=== PATIENT | male | born 1930 | race Caucasian/White ===

== ENCOUNTER 2016-11-02 17:01 | Inpatient (IN) | payer OTHER ==
[~2016-11-02] VITALS: Ht 172.7 cm; Wt 74.3 kg
[~2016-11-02 17:01] MED LIST: ACID CONTROL20 MG PO; BUSPAR10 MG PO; COUMADIN2.5 MG PO; DIGOXIN125 MCG PO; DOCUSATE CALCI240 MG PO; DOXYCYCLINE HY100 MG PO; FLOMAX0.4 MG PO; HEMOCYTE324 MG PO; IMODIUM MS REL1 EACH PO; K-TAB10 MEQ PO; KEFLEX500 MG PO; LOPID600 MG PO; MIRALAX17 GM PO; PROSCAR5 MG PO; SENNA8.6 M1 PO; SPIRIVA1 INHALATI IH; VESICARE5 MG PO
[2016-11-02 17:51] LABS: HEMATOCRIT 36.4 % (38.0-50.0); MCH 30.7 PG (29.0-34.0); MCHC 33.5 G/DL (30.0-36.0); MCV 91.7 FL (86-99); MEAN PLAT.VOLUME 11.6 uM^3 (9.0-12.4); PLATELET COUNT 144 K/uL (156-360); RBC DIS.WIDTH-CV 13.9 % (11.8-14.6); RBC DIS.WIDTH-SD 45.7 % (39-53); RED BLOOD COUNT 3.97 M/uL (4.00-5.50)
[2016-11-02 18:16] LABS: TROP-I INTERPRETATION POSITIVE
[2016-11-02 18:17] LABS: TROPONIN-I 1.23 ng/mL (0.0-0.30)
[2016-11-02 18:22] LABS: CHLORIDE 110 mEq/L (99-109); POTASSIUM 4.3 mEq/L (3.7-5.4); SODIUM 143 mEq/L (136-147)
[2016-11-02 18:25] LABS: GLUCOSE 106 mg/dL (70-99)
[2016-11-02 18:26] LABS: ANION GAP 10 MEQ/L (2-14)
[2016-11-02 18:28] LABS: GFR ESTIMATE (CALCULATED) > 59 mL/min/
[2016-11-02 18:29] LABS: UREA NITROGEN (BUN) 18 mg/dL (9-23)
[2016-11-02 18:36] LABS: INTER. NORMALIZED RATIO 2.5; PROTHROMBIN TIME 25.8 (9.2-11.2); PTT 40.6 (25-32)
[2016-11-02] MEDS ORDERED: COUMADIN2 MG PO (19:20)
[2016-11-02] MEDS ORDERED: FAMOTIDINE20 MG PO (19:25)
[2016-11-02] MEDS ORDERED: AMLODIPINE BESYL5 MG PO (19:26)
[2016-11-02 23:42] LABS: TROP-I INTERPRETATION POSITIVE
[2016-11-02 23:48] LABS: TROPONIN-I 1.52 ng/mL (0.0-0.30)
[2016-11-02 23:56] VITALS: BP 132/88
[2016-11-03 03:23] VITALS: BP 130/81
[2016-11-03 07:55] VITALS: BP 112/70
[2016-11-03 08:22] LABS: HEMATOCRIT 35.5 % (38.0-50.0); MCH 31.8 PG (29.0-34.0); MCHC 34.4 G/DL (30.0-36.0); MCV 92.4 FL (86-99); MEAN PLAT.VOLUME 12.2 uM^3 (9.0-12.4); PLATELET COUNT 132 K/uL (156-360); RBC DIS.WIDTH-CV 14.2 % (11.8-14.6); RED BLOOD COUNT 3.84 M/uL (4.00-5.50); WHITE BLOOD COUNT 5.6 K/uL (4.1-10.2)
[2016-11-03 08:47] LABS: ANION GAP 9 MEQ/L (2-14); CHLORIDE 106 MEQ/L (99-109); GFR ESTIMATE (CALCULATED) > 59 mL/min/; GLUCOSE 105 mg/dL (70-99); POTASSIUM 3.5 MEQ/L (3.7-5.4); SAMPLE HEMOLYSIS CHECK 0; SAMPLE ICTERIC CHECK 0; SAMPLE LIPEMIA CHECK 0; SODIUM 141 MEQ/L (136-147); UREA NITROGEN (BUN) 17 mg/dL (9-23)
[2016-11-03 08:58] LABS: TROP-I INTERPRETATION POSITIVE
[2016-11-03 09:07] LABS: TROPONIN-I 1.54 ng/mL (0.0-0.30)
[2016-11-03 11:55] VITALS: BP 90/60
[2016-11-03 15:30] VITALS: BP 102/64
[2016-11-03 18:45] VITALS: BP 107/61
[2016-11-03 23:14] VITALS: BP 100/55
[2016-11-04 03:48] VITALS: BP 108/64
[2016-11-04 08:29] VITALS: BP 103/65
[2016-11-04 12:15] VITALS: BP 96/55
[2016-11-04 17:46] LABS: TROP-I INTERPRETATION POSITIVE
[2016-11-04 17:48] LABS: TROPONIN-I 1.07 ng/mL (0.0-0.30)
[2016-11-04 17:50] LABS: ANION GAP 7 MEQ/L (2-14); CHLORIDE 103 MEQ/L (99-109); GFR ESTIMATE (CALCULATED) > 59 mL/min/; GLUCOSE 108 mg/dL (70-99); POTASSIUM 4.3 MEQ/L (3.7-5.4); SAMPLE HEMOLYSIS CHECK 0; SAMPLE ICTERIC CHECK 0; SAMPLE LIPEMIA CHECK 0; SODIUM 137 MEQ/L (136-147); UREA NITROGEN (BUN) 30 mg/dL (9-23)
[2016-11-04 19:45] VITALS: BP 114/63
[2016-11-04 22:36] VITALS: BP 108/58
[2016-11-05 03:00] VITALS: BP 96/54
[2016-11-05 06:17] LABS: MEAN PLAT.VOLUME 12.9 uM^3 (9.0-12.4); PLATELET COUNT 164 K/uL (156-360)
[2016-11-05 06:57] LABS: ABS NEUTROPHIL COUNT 4.34; EOSINOPHIL ABS CT 0.14; MCH 31.9 PG (29.0-34.0); MCHC 34.2 G/DL (30.0-36.0); MCV 93.3 FL (86-99); PLAT.SUFFICIENCY ADEQUATE; RBC DIS.WIDTH-CV 14.1 % (11.8-14.6); RBC DIS.WIDTH-SD 47.7 % (39-53); RED BLOOD COUNT 3.86 M/uL (4.00-5.50); USER ID BLP; WHITE BLOOD COUNT 6.8 K/uL (4.1-10.2)
[2016-11-05 08:00] VITALS: BP 101/59
[2016-11-05 11:04] LABS: ANION GAP 12 MEQ/L (2-14); CHLORIDE 101 MEQ/L (99-109); GFR ESTIMATE (CALCULATED) 47 mL/min/; GLUCOSE 102 mg/dL (70-99); POTASSIUM 4.3 MEQ/L (3.7-5.4); SAMPLE HEMOLYSIS CHECK 0; SAMPLE ICTERIC CHECK 0; SAMPLE LIPEMIA CHECK 0; SODIUM 140 MEQ/L (136-147); UREA NITROGEN (BUN) 33 mg/dL (9-23)
[2016-11-05 13:58] LABS: DELETE MACHINE DIFF? YES
[2016-11-05 16:40] VITALS: BP 101/64
[2016-11-05 19:03] VITALS: BP 108/61
[2016-11-05 23:19] VITALS: BP 104/57
[2016-11-06 04:48] VITALS: BP 101/62
[2016-11-06 07:54] VITALS: BP 102/56
[2016-11-06 07:54] LABS: ANION GAP 14 MEQ/L (2-14); CHLORIDE 100 MEQ/L (99-109); GFR ESTIMATE (CALCULATED) 51 mL/min/; GLUCOSE 117 mg/dL (70-99); SAMPLE HEMOLYSIS CHECK 0; SAMPLE ICTERIC CHECK 0; SAMPLE LIPEMIA CHECK 0; SODIUM 143 MEQ/L (136-147); UREA NITROGEN (BUN) 35 mg/dL (9-23)
[2016-11-06 11:13] VITALS: BP 103/60
[2016-11-06 16:50] VITALS: BP 100/60
[2016-11-06 19:10] VITALS: BP 103/55
[2016-11-06 23:28] VITALS: BP 91/52
[2016-11-07 04:42] VITALS: BP 99/57
[2016-11-07 06:37] LABS: EOSINOPHIL (%) 2.4 % (0-5); EOSINOPHIL COUNT 0.1 K/uL (0-0.3); HEMATOCRIT 36.5 % (38.0-50.0); IMMATURE GRANULOCYTE (%) 0.2 % (0.0-0.7); LYMPHOCYTE COUNT 1.8 K/uL (1.0-2.8); MCH 29.6 PG (29.0-34.0); MCHC 31.8 G/DL (30.0-36.0); MCV 93.1 FL (86-99); MEAN PLAT.VOLUME 12.3 uM^3 (9.0-12.4); MONOCYTE (%) 10.4 % (3-12); MONOCYTE COUNT 0.6 K/uL (0-0.8); PLATELET COUNT 142 K/uL (156-360); RBC DIS.WIDTH-CV 14.1 % (11.8-14.6); RBC DIS.WIDTH-SD 47.7 % (39-53); RED BLOOD COUNT 3.92 M/uL (4.00-5.50); WHITE BLOOD COUNT 5.5 K/uL (4.1-10.2)
[2016-11-07 07:01] LABS: ANION GAP 8 MEQ/L (2-14); CHLORIDE 100 MEQ/L (99-109); GFR ESTIMATE (CALCULATED) 51 mL/min/; GLUCOSE 105 mg/dL (70-99); POTASSIUM 3.5 MEQ/L (3.7-5.4); SAMPLE HEMOLYSIS CHECK 0; SAMPLE ICTERIC CHECK 0; SAMPLE LIPEMIA CHECK 0; SODIUM 140 MEQ/L (136-147); UREA NITROGEN (BUN) 33 mg/dL (9-23)
[2016-11-07 08:00] VITALS: BP 102/57
[2016-11-07 12:00] VITALS: BP 100/60
[2016-11-07 16:15] VITALS: BP 94/52
[2016-11-07 19:00] VITALS: BP 110/60
[2016-11-07 23:54] VITALS: BP 106/59
[2016-11-08 04:22] VITALS: BP 97/55
[2016-11-08 07:14] VITALS: BP 104/55
[2016-11-08 07:36] LABS: ANION GAP 11 MEQ/L (2-14); CHLORIDE 102 MEQ/L (99-109); GFR ESTIMATE (CALCULATED) 51 mL/min/; GLUCOSE 113 mg/dL (70-99); SAMPLE HEMOLYSIS CHECK 0; SAMPLE ICTERIC CHECK 0; SAMPLE LIPEMIA CHECK 0; SODIUM 142 MEQ/L (136-147); UREA NITROGEN (BUN) 32 mg/dL (9-23)
[2016-11-08 07:37] LABS: POTASSIUM 4.5 MEQ/L (3.7-5.4)
[2016-11-08 12:55] VITALS: BP 97/55
[2016-11-08 16:45] VITALS: BP 91/53
[2016-11-08 19:33] VITALS: BP 108/62
[2016-11-09] VITALS (7 sets, daily range): BP systolic 92–111; BP diastolic 52–57
[2016-11-09 06:34] LABS: EOSINOPHIL (%) 1.6 % (0-5); EOSINOPHIL COUNT 0.1 K/uL (0-0.3); HEMATOCRIT 35.8 % (38.0-50.0); IMMATURE GRANULOCYTE (%) 0.2 % (0.0-0.7); LYMPHOCYTE COUNT 1.6 K/uL (1.0-2.8); MCHC 31.8 G/DL (30.0-36.0); MCV 94.2 FL (86-99); MEAN PLAT.VOLUME 12.2 uM^3 (9.0-12.4); MONOCYTE (%) 10.2 % (3-12); MONOCYTE COUNT 0.6 K/uL (0-0.8); NEUTROPHIL (%) 62.2 % (45-76); NEUTROPHIL COUNT 3.9 K/uL (1.8-6.4); PLATELET COUNT 135 K/uL (156-360); WHITE BLOOD COUNT 6.3 K/uL (4.1-10.2)
[2016-11-09 09:10] LABS: ALKALINE PHOSPHATASE 46 IU/L (3-129); ANION GAP 10 MEQ/L (2-14); CHLORIDE 103 MEQ/L (99-109); GFR ESTIMATE (CALCULATED) > 59 mL/min/; GLUCOSE 108 mg/dL (70-99); POTASSIUM 4.1 MEQ/L (3.7-5.4); SAMPLE HEMOLYSIS CHECK 0; SAMPLE ICTERIC CHECK 0; SAMPLE LIPEMIA CHECK 0; SODIUM 142 MEQ/L (136-147); TOTAL BILIRUBIN 0.8 MG/DL (0.0-1.0); UREA NITROGEN (BUN) 33 mg/dL (9-23)
[2016-11-10 03:00] VITALS: BP 109/59
[2016-11-10 10:15] VITALS: BP 118/55
[2016-11-10 13:15] VITALS: BP 103/62
[2016-11-10] MEDS ORDERED: ASPIR-LOW81 MG PO (13:15)
[2016-11-10] MEDS ORDERED: FUROSEMIDE40 MG PO (13:15)
[2016-11-10] MEDS ORDERED: NITROSTAT0.4 MG SL (13:15)
[2016-11-10] MEDS ORDERED: LOPRESSOR50 MG PO (13:15)
[2016-11-10] MEDS ORDERED: LISINOPRIL2.5 MG PO (13:15)
[2016-11-10] MEDS ORDERED: ELIQUIS2.5 MG PO (13:15)
[2016-11-10] MEDS ORDERED: PRAVASTATIN SOD80 MG PO (13:15)
[2016-11-10] MEDS ORDERED: DOCUSATE SODIU100 MG PO (13:15)
== END 2016-11-10 16:24 | DRG 280 ==
LOC: EME 17:01 → EDOF 22:42 → 4EAST 22:42
PROVIDERS: Family Medicine; Hospitalist; Internal Medicine Cardiovascular Disease; Nurse Practitioner Adult Health; Physician Assistant; Physician Assistant Medical
DX: I21.4 Non-ST elevation (NSTEMI) myocardial infarction (principal); I50.33 Acute on chronic diastolic (congestive) heart failure; N17.9 Acute kidney failure, unspecified; I11.0 Hypertensive heart disease with heart failure; I48.0 Paroxysmal atrial fibrillation; E78.5 Hyperlipidemia, unspecified; J44.1 Chronic obstructive pulmonary disease with (acute) exacerbation; E87.6 Hypokalemia; J92.0 Pleural plaque with presence of asbestos; T57.8X1D Toxic effect of other specified inorganic substances, accidental (unintentional), subsequent encounter; N40.0 Benign prostatic hyperplasia without lower urinary tract symptoms; Z87.891 Personal history of nicotine dependence; I27.2 Other secondary pulmonary hypertension; Z79.01 Long term (current) use of anticoagulants; I44.0 Atrioventricular block, first degree; H91.90 Unspecified hearing loss, unspecified ear
CPT/HCPCS: 71020; 78452; 80048; 80053; 80162; 83880; 84484; 85025; 85027; 85610; 85730; 93005; 93017; 93306; 94640; 94640 76; 94760; 94799; 97530 GP; 99202; 99281; 99285; A9500; J1940; J2785

== ENCOUNTER 2017-01-08 14:49 | Inpatient (IN) | payer OTHER ==
[~2017-01-08] VITALS: Ht 172.7 cm; Wt 64.3 kg
[~2017-01-08 14:49] MED LIST changes: +AMLODIPINE BESYL5 MG PO; +ASPIR-LOW81 MG PO; +COUMADIN2 MG PO; +DOCUSATE SODIU100 MG PO; +ELIQUIS2.5 MG PO; +FAMOTIDINE20 MG PO; +FUROSEMIDE40 MG PO; +LISINOPRIL2.5 MG PO; +LOPRESSOR50 MG PO; +NITROSTAT0.4 MG SL; +PRAVASTATIN SOD80 MG PO
[2017-01-08 15:43] LABS: EOSINOPHIL (%) 0.1 % (0-5); HEMATOCRIT 39.4 % (38.0-50.0); IMMATURE GRANULOCYTE (%) 0.3 % (0.0-0.7); INSTRUMENT ABS NEUTROPHIL CT 5.3 K/uL; LYMPHOCYTE COUNT 1.6 K/uL (1.0-2.8); MCH 30.5 PG (29.0-34.0); MCHC 34.3 G/DL (30.0-36.0); MCV 88.9 FL (86-99); MEAN PLAT.VOLUME 11.9 uM^3 (9.0-12.4); MONOCYTE (%) 8.7 % (3-12); MONOCYTE COUNT 0.7 K/uL (0-0.8); NEUTROPHIL (%) 69.9 % (45-76); NEUTROPHIL COUNT 5.3 K/uL (1.8-6.4); PLATELET COUNT 162 K/uL (156-360); RBC DIS.WIDTH-CV 12.1 % (11.8-14.6); RBC DIS.WIDTH-SD 39.7 % (39-53); RED BLOOD COUNT 4.43 M/uL (4.00-5.50); WHITE BLOOD COUNT 7.6 K/uL (4.1-10.2)
[2017-01-08 15:52] LABS: CHLORIDE 89 mEq/L (99-109); POTASSIUM 2.9 mEq/L (3.7-5.4); SODIUM 134 mEq/L (136-147)
[2017-01-08 15:54] LABS: GLUCOSE 115 mg/dL (70-99)
[2017-01-08 15:55] LABS: ANION GAP 15 MEQ/L (2-14)
[2017-01-08 15:57] LABS: ALKALINE PHOSPHATASE 39 IU/L (3-129)
[2017-01-08 15:58] LABS: GFR ESTIMATE (CALCULATED) 18 mL/min/
[2017-01-08 16:02] LABS: UREA NITROGEN (BUN) 87 mg/dL (9-23)
[2017-01-08 16:04] LABS: TROP-I INTERPRETATION NEGATIVE; TROPONIN-I 0.07 ng/mL (0.0-0.30)
[2017-01-08] MEDS ORDERED: IRON325 M1 PO (17:52)
[2017-01-08] MEDS ORDERED: LISINOPRIL2.5 MG PO (17:53)
[2017-01-08] MEDS ORDERED: FUROSEMIDE40 MG PO (17:54)
[2017-01-08] MEDS ORDERED: LO-DOSE ASPIRIN81 M2 PO (17:54)
[2017-01-08] MEDS ORDERED: MIRALAX255 GM PO (17:55)
[2017-01-08] MEDS ORDERED: TRICOR48 MG PO (17:56)
[2017-01-08] MEDS ORDERED: METOLAZONE5 MG PO (17:56)
[2017-01-08] MEDS ORDERED: POTASSIUM CHLO20 ME2 PO (17:57)
[2017-01-08 21:06] LABS: ADD MIUA? NO; BILIRUBIN NEGATIVE; BLOOD NEGATIVE; COLOR YELLOW ((YELLOW)); GLUCOSE (STRIP) NEGATIVE; KETONES NEGATIVE; LEUKOCYTES NEGATIVE; NITRITE NEGATIVE; PROTEIN (STRIP) NEGATIVE; SPECIFIC GRAVITY 1.009 (1.000-1.030); UCUL ADDED? NO; UROBILINOGEN 0.2 MG/DL (0.2-1.0)
[2017-01-08 21:27] LABS: DIGOXIN < 0.3 ng/mL (0.8-2.0)
[2017-01-08 22:06] LABS: MAGNESIUM 2.5 mg/dL (1.3-2.7)
[2017-01-08 23:28] VITALS: BP 121/55
[2017-01-09 04:15] VITALS: BP 112/63
[2017-01-09 07:13] LABS: ALKALINE PHOSPHATASE 36 IU/L (3-129); ANION GAP 11 MEQ/L (2-14); CHLORIDE 94 MEQ/L (99-109); GFR ESTIMATE (CALCULATED) 24 mL/min/; GLUCOSE 99 mg/dL (70-99); POTASSIUM 2.9 MEQ/L (3.7-5.4); SAMPLE HEMOLYSIS CHECK 0; SAMPLE ICTERIC CHECK 0; SAMPLE LIPEMIA CHECK 0; SODIUM 137 MEQ/L (136-147); TOTAL BILIRUBIN 0.7 MG/DL (0.0-1.0); UREA NITROGEN (BUN) 76 mg/dL (9-23)
[2017-01-09 09:52] VITALS: BP 106/68
[2017-01-09 16:23] VITALS: BP 100/58
[2017-01-09 22:57] VITALS: BP 131/60
[2017-01-10 06:38] LABS: EOSINOPHIL (%) 2.6 % (0-5); EOSINOPHIL COUNT 0.2 K/uL (0-0.3); HEMATOCRIT 35.6 % (38.0-50.0); IMMATURE GRANULOCYTE (%) 0.3 % (0.0-0.7); INSTRUMENT ABS NEUTROPHIL CT 4.3 K/uL; LYMPHOCYTE COUNT 1.7 K/uL (1.0-2.8); MCH 29.9 PG (29.0-34.0); MCHC 32.3 G/DL (30.0-36.0); MCV 92.7 FL (86-99); MEAN PLAT.VOLUME 12.1 uM^3 (9.0-12.4); MONOCYTE (%) 8.7 % (3-12); MONOCYTE COUNT 0.6 K/uL (0-0.8); NEUTROPHIL COUNT 4.3 K/uL (1.8-6.4); PLATELET COUNT 123 K/uL (156-360); RBC DIS.WIDTH-CV 12.3 % (11.8-14.6); RBC DIS.WIDTH-SD 42.1 % (39-53); RED BLOOD COUNT 3.84 M/uL (4.00-5.50); WHITE BLOOD COUNT 6.9 K/uL (4.1-10.2)
[2017-01-10 06:41] LABS: ANION GAP 7 MEQ/L (2-14); CHLORIDE 102 MEQ/L (99-109); GFR ESTIMATE (CALCULATED) 47 mL/min/; GLUCOSE 116 mg/dL (70-99); POTASSIUM 3.4 MEQ/L (3.7-5.4); SAMPLE HEMOLYSIS CHECK 0; SAMPLE ICTERIC CHECK 0; SAMPLE LIPEMIA CHECK 0; SODIUM 139 MEQ/L (136-147); UREA NITROGEN (BUN) 48 mg/dL (9-23)
[2017-01-10 06:59] VITALS: BP 104/57
[2017-01-10 19:37] VITALS: BP 132/68
[2017-01-10 23:32] VITALS: BP 123/68
[2017-01-11 03:52] VITALS: BP 134/76
[2017-01-11 07:04] LABS: EOSINOPHIL (%) 3.7 % (0-5); EOSINOPHIL COUNT 0.2 K/uL (0-0.3); HEMATOCRIT 34.5 % (38.0-50.0); IMMATURE GRANULOCYTE (%) 0.5 % (0.0-0.7); INSTRUMENT ABS NEUTROPHIL CT 3.7 K/uL; LYMPHOCYTE COUNT 1.4 K/uL (1.0-2.8); MCH 29.7 PG (29.0-34.0); MCHC 31.6 G/DL (30.0-36.0); MEAN PLAT.VOLUME 12.5 uM^3 (9.0-12.4); MONOCYTE (%) 8.7 % (3-12); MONOCYTE COUNT 0.5 K/uL (0-0.8); NEUTROPHIL (%) 62.5 % (45-76); NEUTROPHIL COUNT 3.7 K/uL (1.8-6.4); PLATELET COUNT 115 K/uL (156-360); RBC DIS.WIDTH-CV 12.3 % (11.8-14.6); RBC DIS.WIDTH-SD 42.8 % (39-53); RED BLOOD COUNT 3.67 M/uL (4.00-5.50)
[2017-01-11 07:20] LABS: ALKALINE PHOSPHATASE 28 IU/L (3-129); ANION GAP 7 MEQ/L (2-14); CHLORIDE 103 MEQ/L (99-109); GFR ESTIMATE (CALCULATED) > 59 mL/min/; GLUCOSE 105 mg/dL (70-99); POTASSIUM 3.7 MEQ/L (3.7-5.4); SAMPLE HEMOLYSIS CHECK 0; SAMPLE ICTERIC CHECK 0; SAMPLE LIPEMIA CHECK 0; SODIUM 139 MEQ/L (136-147); UREA NITROGEN (BUN) 31 mg/dL (9-23)
[2017-01-11 07:22] LABS: TOTAL BILIRUBIN 0.5 MG/DL (0.0-1.0)
[2017-01-11 07:30] VITALS: BP 118/58
[2017-01-11 11:00] VITALS: BP 121/66
== END 2017-01-11 15:59 | DRG 682 ==
LOC: EME 14:49 → EDOF 20:36 → 5EAST 20:36
PROVIDERS: Emergency Medicine; Nurse Practitioner Adult Health; Physician Assistant Medical
DX: N17.9 Acute kidney failure, unspecified (principal); I25.10 Atherosclerotic heart disease of native coronary artery without angina pectoris; I48.0 Paroxysmal atrial fibrillation; E78.5 Hyperlipidemia, unspecified; I12.9 Hypertensive chronic kidney disease with stage 1 through stage 4 chronic kidney disease, or unspecified chronic kidney disease; N18.3 Chronic kidney disease, stage 3 (moderate); K50.90 Crohn's disease, unspecified, without complications; M19.90 Unspecified osteoarthritis, unspecified site; E87.5 Hyperkalemia; I50.31 Acute diastolic (congestive) heart failure; J44.9 Chronic obstructive pulmonary disease, unspecified; J84.10 Pulmonary fibrosis, unspecified; I27.2 Other secondary pulmonary hypertension; I95.9 Hypotension, unspecified; K21.9 Gastro-esophageal reflux disease without esophagitis; N40.0 Benign prostatic hyperplasia without lower urinary tract symptoms; K59.00 Constipation, unspecified; R63.4 Abnormal weight loss; F32.9 Major depressive disorder, single episode, unspecified; R07.9 Chest pain, unspecified; J32.9 Chronic sinusitis, unspecified; E46 Unspecified protein-calorie malnutrition; H91.90 Unspecified hearing loss, unspecified ear; Z86.73 Personal history of transient ischemic attack (TIA), and cerebral infarction without residual deficits; Z68.22 Body mass index [BMI] 22.0-22.9, adult; Z79.01 Long term (current) use of anticoagulants; I25.2 Old myocardial infarction; Z90.49 Acquired absence of other specified parts of digestive tract; E87.1 Hypo-osmolality and hyponatremia
CPT/HCPCS: 71020; 72100; 74230; 76770; 80048; 80053; 80162; 81003; 82436; 82575; 83735; 83880; 83935; 84100; 84133; 84300; 84484; 85025; 92610 GN; 92611 GN; 93005; 94640; 94640 76; 94760; 94799; 97530 GP; 99202; 99281; 99285; J3475; J3480; J7030

== ENCOUNTER 2017-04-14 12:27 | Inpatient (IN) | payer OTHER ==
[~2017-04-14] VITALS: Ht 172.7 cm; Wt 68.8 kg
[~2017-04-14 12:27] MED LIST changes: +FUROSEMIDE20 MG PO; +IRON325 M1 PO; +LO-DOSE ASPIRIN81 M2 PO; +METOLAZONE5 MG PO; +MIRALAX255 GM PO; +POTASSIUM CHLO20 ME2 PO; +TRICOR48 MG PO
[2017-04-14 19:28] LABS: BILIRUBIN NEGATIVE; BLOOD NEGATIVE; COLOR AMBER ((YELLOW)); GLUCOSE (STRIP) NEGATIVE; KETONES NEGATIVE; LEUKOCYTES NEGATIVE; NITRITE NEGATIVE; PROTEIN (STRIP) NEGATIVE; SPECIFIC GRAVITY 1.012 (1.000-1.030); UROBILINOGEN 0.2 MG/DL (0.2-1.0)
[2017-04-14 19:30] LABS: ADD MIUA? NO; UCUL ADDED? NO
[2017-04-14 19:51] LABS: EOSINOPHIL (%) 0.3 % (0-5); HEMATOCRIT 34.7 % (38.0-50.0); IMMATURE GRANULOCYTE (%) 0.4 % (0.0-0.7); INSTRUMENT ABS NEUTROPHIL CT 7.7 K/uL; LYMPHOCYTE COUNT 1.4 K/uL (1.0-2.8); MCH 31.2 PG (29.0-34.0); MCV 91.8 FL (86-99); MEAN PLAT.VOLUME 10.2 uM^3 (9.0-12.4); MONOCYTE (%) 8.2 % (3-12); MONOCYTE COUNT 0.8 K/uL (0-0.8); NEUTROPHIL (%) 76.6 % (45-76); NEUTROPHIL COUNT 7.7 K/uL (1.8-6.4); PLATELET COUNT 185 K/uL (156-360); RBC DIS.WIDTH-CV 13.2 % (11.8-14.6); RBC DIS.WIDTH-SD 44.6 % (39-53); RED BLOOD COUNT 3.78 M/uL (4.00-5.50)
[2017-04-14 20:01] LABS: CHLORIDE 90 mEq/L (99-109); POTASSIUM 2.6 mEq/L (3.7-5.4); SODIUM 139 mEq/L (136-147)
[2017-04-14 20:02] LABS: GLUCOSE 129 mg/dL (70-99)
[2017-04-14 20:04] LABS: ANION GAP 13 MEQ/L (2-14)
[2017-04-14 20:06] LABS: GFR ESTIMATE (CALCULATED) > 59 mL/min/
[2017-04-14] MEDS ORDERED: PHILLIPS'400 MG/5 M PO (20:06)
[2017-04-14] MEDS ORDERED: B COMPLEX #11 EACH PO (20:06)
[2017-04-14 20:07] LABS: UREA NITROGEN (BUN) 15 mg/dL (9-23)
[2017-04-14 20:45] LABS: TROP-I INTERPRETATION POSITIVE
[2017-04-14 21:20] VITALS: BP 132/63
[2017-04-15] VITALS (7 sets, daily range): BP systolic 89–139; BP diastolic 52–74
[2017-04-15 01:14] LABS: INTER. NORMALIZED RATIO 1.3; PROTHROMBIN TIME 14.2 SEC (10.2-12.9)
[2017-04-15 01:16] LABS: PTT 29.2 SEC (25-37)
[2017-04-15 04:35] LABS: TROP-I INTERPRETATION POSITIVE
[2017-04-15 04:45] LABS: TROPONIN-I 4.12 ng/mL (0.0-0.30)
[2017-04-15 05:28] LABS: HEMATOCRIT 35.9 % (38.0-50.0); MCH 31.3 PG (29.0-34.0); MCHC 33.7 G/DL (30.0-36.0); MCV 92.8 FL (86-99); MEAN PLAT.VOLUME 10.7 uM^3 (9.0-12.4); PLATELET COUNT 177 K/uL (156-360); RBC DIS.WIDTH-CV 13.3 % (11.8-14.6); RBC DIS.WIDTH-SD 45.7 % (39-53); RED BLOOD COUNT 3.87 M/uL (4.00-5.50); WHITE BLOOD COUNT 8.4 K/uL (4.1-10.2)
[2017-04-15 05:50] LABS: ANION GAP 8 MEQ/L (2-14); CHLORIDE 93 MEQ/L (99-109); GFR ESTIMATE (CALCULATED) > 59 mL/min/; GLUCOSE 101 mg/dL (70-99); SAMPLE HEMOLYSIS CHECK 0; SAMPLE ICTERIC CHECK 0; SAMPLE LIPEMIA CHECK 0; SODIUM 138 MEQ/L (136-147); UREA NITROGEN (BUN) 14 mg/dL (9-23)
[2017-04-15 06:14] LABS: METH RESISTANT S AUREUS PCR NEGATIVE (NEGATIVE)
[2017-04-15 06:18] LABS: PROBE CHECK PASS; SPECIMEN PROCESSING CONTROL PASS
[2017-04-15 09:17] LABS: TROP-I INTERPRETATION POSITIVE; TROPONIN-I 3.34 ng/mL (0.0-0.30)
[2017-04-15 15:27] LABS: INTER. NORMALIZED RATIO 1.3; PROTHROMBIN TIME 14.2 SEC (10.2-12.9)
[2017-04-15 15:37] LABS: PTT 47.2 SEC (25-37)
[2017-04-15 22:17] LABS: INTER. NORMALIZED RATIO 1.2; PROTHROMBIN TIME 13.3 SEC (10.2-12.9)
[2017-04-15 22:19] LABS: PTT 62.6 SEC (25-37)
[2017-04-16 04:18] VITALS: BP 97/53
[2017-04-16 08:23] VITALS: BP 96/53
[2017-04-16 12:19] VITALS: BP 118/59
[2017-04-16 16:21] VITALS: BP 132/64
[2017-04-16 20:00] VITALS: BP 115/57
[2017-04-16 23:55] VITALS: BP 119/52
[2017-04-17 04:00] VITALS: BP 119/82
[2017-04-17 05:48] LABS: HEMATOCRIT 31.3 % (38.0-50.0); MCH 31.4 PG (29.0-34.0); MCHC 34.2 G/DL (30.0-36.0); MCV 91.8 FL (86-99); MEAN PLAT.VOLUME 10.1 uM^3 (9.0-12.4); PLATELET COUNT 166 K/uL (156-360); RBC DIS.WIDTH-CV 13.3 % (11.8-14.6); RBC DIS.WIDTH-SD 45.1 % (39-53); RED BLOOD COUNT 3.41 M/uL (4.00-5.50); WHITE BLOOD COUNT 7.5 K/uL (4.1-10.2)
[2017-04-17 06:10] LABS: ANION GAP 7 MEQ/L (2-14); CHLORIDE 93 MEQ/L (99-109); GFR ESTIMATE (CALCULATED) > 59 mL/min/; GLUCOSE 106 mg/dL (70-99); POTASSIUM 2.9 MEQ/L (3.7-5.4); SAMPLE HEMOLYSIS CHECK 0; SAMPLE ICTERIC CHECK 0; SAMPLE LIPEMIA CHECK 0; SODIUM 137 MEQ/L (136-147); UREA NITROGEN (BUN) 20 mg/dL (9-23)
[2017-04-17 07:26] VITALS: BP 119/59
[2017-04-17 11:28] VITALS: BP 121/84
[2017-04-17] MEDS ORDERED: HYDROCODON-ACE1 EAC7 PO (14:53)
[2017-04-17] MEDS ORDERED: TRAMADOL HCL50 MG PO (14:54)
[2017-04-17] MEDS ORDERED: GABAPENTIN100 MG PO (14:54)
[2017-04-17] MEDS ORDERED: LIDOCAINE1 EACH TD (14:54)
[2017-04-17 15:44] VITALS: BP 109/55
== END 2017-04-17 17:47 | disposition home or self-care (01) | DRG 281 ==
LOC: EME 12:27 → EDOF 20:12 → ENRESERV 20:14 → 5WEST 20:44 → 4EAST 21:15 → ENRESERV 21:21 → 4EAST 23:47
PROVIDERS: Emergency Medicine; Hospitalist; Internal Medicine; Nurse Practitioner Adult Health; Physician Assistant
DX: I21.4 Non-ST elevation (NSTEMI) myocardial infarction (principal); M48.06 Spinal stenosis, lumbar region; I48.0 Paroxysmal atrial fibrillation; I50.9 Heart failure, unspecified; I11.0 Hypertensive heart disease with heart failure; I50.42 Chronic combined systolic (congestive) and diastolic (congestive) heart failure; I08.3 Combined rheumatic disorders of mitral, aortic and tricuspid valves; J44.9 Chronic obstructive pulmonary disease, unspecified; K50.90 Crohn's disease, unspecified, without complications; I27.2 Other secondary pulmonary hypertension; I42.9 Cardiomyopathy, unspecified; M51.36 Other intervertebral disc degeneration, lumbar region; M54.5 Low back pain; I25.2 Old myocardial infarction; N40.0 Benign prostatic hyperplasia without lower urinary tract symptoms; K21.9 Gastro-esophageal reflux disease without esophagitis; G89.29 Other chronic pain; I87.2 Venous insufficiency (chronic) (peripheral); H91.90 Unspecified hearing loss, unspecified ear; I25.10 Atherosclerotic heart disease of native coronary artery without angina pectoris; F32.9 Major depressive disorder, single episode, unspecified; E87.6 Hypokalemia; E78.5 Hyperlipidemia, unspecified; Z87.891 Personal history of nicotine dependence; Z86.73 Personal history of transient ischemic attack (TIA), and cerebral infarction without residual deficits; Z79.82 Long term (current) use of aspirin; Z79.01 Long term (current) use of anticoagulants
CPT/HCPCS: 71010; 71275; 72100; 72148; 74174; 80048; 80069; 81003; 83735; 83880; 84132 91; 84484; 85025; 85027; 85610; 85730; 87641; 93005; 94640; 94640 76; 94760; 94799; 99281; 99285; J2270; J3480; J7040

== ENCOUNTER 2017-05-19 10:44 | Emergency (ER) | payer OTHER ==
[~2017-05-19] VITALS: Ht 172.7 cm; Wt 70.2 kg
[~2017-05-19 10:44] MED LIST changes: +B COMPLEX #11 EACH PO; +GABAPENTIN100 MG PO; +HYDROCODON-ACE1 EAC7 PO; +LIDOCAINE1 EACH TD; +PHILLIPS'400 MG/5 M PO; +TRAMADOL HCL50 MG PO
[2017-05-19 14:26] VITALS: BP 129/81
== END 2017-05-19 14:28 ==
LOC: EME 10:44
DX: M48.06 Spinal stenosis, lumbar region (principal); G89.29 Other chronic pain; I10 Essential (primary) hypertension; M54.5 Low back pain; I25.2 Old myocardial infarction; K50.90 Crohn's disease, unspecified, without complications; J44.9 Chronic obstructive pulmonary disease, unspecified; H91.90 Unspecified hearing loss, unspecified ear; N40.0 Benign prostatic hyperplasia without lower urinary tract symptoms; Z86.73 Personal history of transient ischemic attack (TIA), and cerebral infarction without residual deficits; Z79.82 Long term (current) use of aspirin; Z87.891 Personal history of nicotine dependence
CPT/HCPCS: 99281; 99284; J2270